=== PATIENT | male | born 1950 | race African-American/Black ===

== ENCOUNTER 2019-02-28 17:48 | Emergency (ER) | payer OTHER ==
[~2019-02-28] VITALS: Ht 193 cm; Wt 111.1 kg
[2019-02-28] MEDS ORDERED: MORPHINE SULFATE 4 MG/ML SYR/VIAL IV ONE (22:00)
[2019-02-28] MEDS ORDERED: ONDANSETRON HCL 4 MG/2 ML VIAL IV ONE (22:00)
[2019-03-01] VITALS: BP 122/69
[2019-03-01] MEDS ORDERED: HYDROcodone-ACET 7.5/325MG TAB PO ONE (00:15)
== END 2019-03-01 01:11 | disposition home or self-care (01) ==
LOC: ER 17:53
DX: S46.911A Strain of unspecified muscle, fascia and tendon at shoulder and upper arm level, right arm, initial encounter (principal); S93.401A Sprain of unspecified ligament of right ankle, initial encounter; M19.011 Primary osteoarthritis, right shoulder; E78.5 Hyperlipidemia, unspecified; I10 Essential (primary) hypertension; X50.9XXA Other and unspecified overexertion or strenuous movements or postures, initial encounter; Y93.89 Activity, other specified; Y99.8 Other external cause status; Y92.89 Other specified places as the place of occurrence of the external cause
CPT/HCPCS: 73030; 73200; 96374; 96375; 99284; J2270; J2405

== ENCOUNTER 2022-09-27 07:34 | Emergency (ER) | payer OTHER ==
[~2022-09-27] VITALS: Ht 160 cm; Wt 108.3 kg
[2022-09-27 08:19] LABS: Basophils # (auto) 0.1 10 ^3/uL (0-0.2); Basophils % (auto) 1.2 % (0.0-2.0); Eosinophils # (auto) 0.1 10 ^3/uL (0-0.8); Eosinophils % (auto) 2.4 % (0.0-7.0); Hematocrit 40.4 % (41.0-53.0); Hemoglobin 14.1 g/dL (13.5-17.5); Lymphocytes # (auto) 1.9 10 ^3/uL (0.4-5.4); Lymphocytes % (auto) 34.4 % (10.0-50.0); Mean Corpuscular Hemoglobin 34.3 pg (28.0-32.0); Mean Corpuscular Hgb Conc. 34.9 g/dL (32.0-36.0); Mean Corpuscular Volume 98.1 fL (80.0-100.0); Monocytes # (auto) 0.5 10 ^3/uL (0-1.3); Monocytes % (auto) 8.2 % (0.0-12.0); Neutrophils % (auto) 53.8 % (37.0-80.0); Nucleated Red Blood Cells % 0.1 %; Red Blood Cells 4.11 10^6/uL (4.5-5.90); Red Cell Distribution Width 14.4 % (11.8-14.3); White Blood Cell 5.5 10^3/uL (4.4-10.8)
[2022-09-27 08:33] LABS: Albumin 3.6 g/dL (3.4-5.0); Calcium 8.8 mg/dL (8.5-10.1); Potassium 3.2 mmol/L (3.5-5.1)
[2022-09-27 08:36] LABS: BUN/Creatinine Ratio 8.1; Bilirubin, Total 0.3 mg/dL (0.2-1.0); Total Protein 6.9 g/dL (6.4-8.2)
[2022-09-27] MEDS ORDERED: POTASSIUM EFFERVESENT TAB 25 MEQ PO ONE (09:30)
[2022-09-27 12:26] VITALS: BP 135/80
== END 2022-09-27 12:30 | disposition home or self-care (01) ==
LOC: ER 07:34
DX: E87.6 Hypokalemia (principal); I10 Essential (primary) hypertension; E78.5 Hyperlipidemia, unspecified; Z90.89 Acquired absence of other organs
CPT/HCPCS: 36415; 70450; 80053; 84484; 85025; 85379; 93005

== ENCOUNTER 2023-05-06 19:19 | Emergency (ER) | payer OTHER ==
[~2023-05-06] VITALS: Ht 190.5 cm; Wt 104.5 kg
[2023-05-06 19:27] VITALS: BP 125/65; PULSE 86; RESP 16; O2SAT 98
== END 2023-05-06 23:58 | disposition left against medical advice (07) ==
LOC: ER 19:19
DX: R51.9 Headache, unspecified (principal); E78.5 Hyperlipidemia, unspecified; I10 Essential (primary) hypertension; Z53.21 Procedure and treatment not carried out due to patient leaving prior to being seen by health care provider; W18.09XA Striking against other object with subsequent fall, initial encounter; Y93.89 Activity, other specified; Y92.89 Other specified places as the place of occurrence of the external cause; Y99.8 Other external cause status
CPT/HCPCS: 70450

== ENCOUNTER 2025-07-11 22:25 | Emergency (ER) | payer OTHER ==
[~2025-07-11] VITALS: Ht 190.5 cm; Wt 104.5 kg
--- NOTE | 2025-07-11 23:12 | DVH ---
EXAM: CT HEAD WITHOUT CONTRAST INDICATION: fall, head injury TECHNIQUE: CT of the head without intravenous contrast. Radiation Dose : 1. Head: CT Dose: CTDI volume is 67.9 mGy. Dose-length product is 1337.9 mGy*cm The dose indicators for CT are the volume Computed Tomography (CT) Dose Index (CTDIvol) and the Dose Length Product (DLP), and are measured in units of mGy and mGy-cm, respectively. These indicators are not patient dose, but values generated from the CT scanner acquisition factors. The report includes radiation exposure data for exposures received during this examination. COMPARISON: CT HEAD WITHOUT CONTRAST on DOS: 05/06/23, CT HEAD WITHOUT CONTRAST on DOS: 09/27/22 FINDINGS: Motion artifact degrades fine detail. No acute territorial infarct, intracranial hemorrhage, or mass effect. There are global involutional changes with compensatory prominence of the ventricles and sulci. Patchy periventricular and subcortical white matter hypoattenuation is nonspecific but may be related to small vessel ischemic disease. Right lens implant. The paranasal sinuses and mastoid air cells are clear. The osseous structures are unremarkable. IMPRESSION: 1. No acute territorial infarct, intracranial hemorrhage, or mass effect. 2. Age-related involutional changes. Chronic microvascular changes. Radiation optimization: All CT scans at this facility use at least one of these dose optimization techniques: automated exposure control mA and/or kV adjustment per patient size (includes targeted exams where dose is matched to clinical indication) or iterative reconstruction.
--- NOTE | 2025-07-11 23:21 | DVH ---
CLINICAL HISTORY: fall, head injury TECHNIQUE: CT exam of the cervical spine was performed without intravenous contrast. This exam was performed according to our departmental dose optimization program. Up-to-date CT equipment and radiation dose reduction techniques are utilized as appropriate. CTDI 23.63 mGy DLP 643.99 mGy.cm COMPARISON: None FINDINGS: No acute displaced fracture. There are degenerative changes of the cervical spine characterized by endplate osteophytosis and intervertebral disc space narrowing. Prior laminectomy at C5 through C7. Nonspecific heterogeneous appearance of the osseous structures. There is reversal of the cervical dania dosis. There are prominent multilevel disc osteophyte complexes. Degenerative uncovertebral and facet hypertrophy contribute to multilevel neural foraminal narrowing. The paraspinal soft tissues are unremarkable. There is heterogeneous enlarged thyroid goiter containing calcification. IMPRESSION: 1. No acute displaced fracture. 2. Degenerative and postsurgical changes of the cervical spine as detailed. 3. Heterogeneous appearance of the osseous structures. Comparison with prior imaging is suggested in the assessing acuity and interval change. 4. Heterogeneous thyroid goiter may be further assessed with a nonemergent thyroid ultrasound as clinically indicated.
--- NOTE | 2025-07-11 23:32 | ED.PDOC ---
[place]. trauma (HPI) HPI Comments HPI: Poor Historian. 75-year-old male presents to emergency department for evaluation of a fall from a standing position. Patient states he was using his walker trying to get into his truck in his right leg gave out and he fell backward and hit the right side of the back of his head. Denies any numbness or tingling or loss of consciousness. Denies any other complaints. Past Medical History: On Xarelto, hyperlipidemia, hypertension, insomnia, DVT Past Surgical History: Surgical spine surgery REVIEW OF SYSTEMS: CONSTITUTIONAL: Denies acute: fever, diaphoresis, chills, generalized weakness. HEAD: Denies acute: photophobia Eyes: Denies acute: Double vision, vision loss, eye pain, eye discharge. EARS: Denies acute: tinnitus, hearing loss, ear discharge, ear pain, THROAT: Denies acute: sore throat, swelling, difficulty swallowing , pain with swallowing, change in voice. NECK: Denies acute: neck pain, neck swelling, stiff neck. HEART: Denies acute : chest pain, palpitations, LUNGS: Denies acute: SOB, wheezing, cough, hemoptysis ABDOMEN: Denies acute: abdominal pain, Nausea, Vomiting, diarrhea, melena , hematemesis, hematochezia SKIN: Denies acute: rash, redness, lesions, itchiness. EXTREMITIES: Denies acute: calf pain, numbness, tingling, weakness, denies pain in extremity. Denies acute: Low back pain. Neuro: Denies acute: focal neurological deficit, motor or sensory focal neurological deficit, tremors, seizure like activity, confusion, dizziness, change in mental status, loss of bowel or bladder function, cauda equina like symptoms. : Denies acute: dysuria, hematuria, flank pain, increase in urinary frequency. PSYCH: Denies acute: hallucination, suicidal ideation, homicidal ideation. PHYSICAL EXAM: General: ----no----acute distress, awake and alert. Head: normocephalic, atraumatic. No raccoon's eyes, no murphy sign. Neck: supple, trachea is midline, no swelling. Cervical spine: Palpation of the posterior midline of the cervical spine reveals no focal swelling, erythema, focal tenderness to palpation. Patient has normal range of motion. Throat: Normal phonation. Eyes:, no erythema, no purulent discharge, no proptosis, no icterus. Heart: regular rate, regular rhythm, no significant murmur appreciated. Lungs: no apparent respiratory distress, Able to speak in full sentences. No wheezing, no rhonchi, no crackles. No stridors Clear to auscultation bilaterally. Abdomen: non tender to palpation, non distended, soft, no guarding, no rebound, + bowel sounds. Neuro: Awake, Alert, oriented to name, self, situation, follows commands GCS=15. Speech is normal. Skin: no petechia, no purpura, no cyanosis, non-pale, not jaundice. Lower extremities: --no - Pitting edema no deformity, no focal swelling, no calf TTP. Makes eye contact. moves all four extremities. Patient ambulates with a walker only. History of unsteady gait and leg weakness. Face: no apparent facial droop. No nuchal rigidity, Kernig's sign, Brudzinski's sign, no meningeal signs. ED COURSE: DISCLAIMER: This medical document was created using an electronic medical record system with voice recognition software and computerized dictation system. Although this document has been carefully reviewed, there might still be some phonetic and typographical errors. Occasional wrong-word or "sound-alike" substitutions may have occurred due to the inherent limitations of voice recognition software. These areas are purely typographical due to imperfections of the software programs and do not reflect any compromise in the patient's medical care. Please read the chart carefully and recognize, using context, where these substitutions have occurred. Chief Complaint: Head Injury Time Seen by MD: 22:37 Reviewed notes: Allergies Allergies: Coded Allergies: NO KNOWN ALLERGIES (Unverified , 02/13/18) Information Source: Patient Mode of Arrival: Ambulatory Past Medical History PAST MEDICAL HISTORY: High Lipids, HTN Surgical History: Thyroidectomy Family History Family History: Unknown Social History Smoker: Non-Smoker Alcohol: Denies ETOH Use Drugs: Denies Drug Use Lives In: Home X-Ray, Labs, Meds, VS Vital Signs Date Time Temp Pulse Resp B/P (MAP) Pulse Ox O2 Delivery O2 Flow Rate FiO2 07/11/25 22:30 98.4 66 18 111/69 96 98.4 X-Ray, Labs, Meds, VS Comment [facility] [id number] [place] [id number] Ph: [phone] DIAGNOSTIC IMAGING Diagnostic Imaging Report : [id number] Signed PATIENT: LATOYA FULLER ACCT: [id number] UNIT: [id number] : 1950 LOC: ER ROOM / BED: / AGE / SEX: 75 / M ADM STATUS: REG ER SERVICE 36 ORDERING PHYSICIAN: CARL WHITING DO PROCEDURE(s): HWOCT - HEAD WITHOUT CONTRAST REASON: fall, head injury ORDER NUMBER(s): [id number], ACCESSION NUMBER(s): [id number] EXAM: CT HEAD WITHOUT CONTRAST INDICATION: fall, head injury TECHNIQUE: CT of the head without intravenous contrast. Radiation Dose : 1. Head: CT Dose: CTDI volume is 67.9 mGy. Dose-length product is 1337.9 mGy*cm The dose indicators for CT are the volume Computed Tomography (CT) Dose Index (CTDIvol) and the Dose Length Product (DLP), and are measured in units of mGy and mGy-cm, respectively. These indicators are not patient dose, but values generated from the CT scanner acquisition factors. The report includes radiation exposure data for exposures received during this examination. COMPARISON: CT HEAD WITHOUT CONTRAST on DOS: 05/06/23, CT HEAD WITHOUT CONTRAST on DOS: 09/27/22 FINDINGS: Motion artifact degrades fine detail. No acute territorial infarct, intracranial hemorrhage, or mass effect. There are global involutional changes with compensatory prominence of the ventricles and sulci. Patchy periventricular and subcortical white matter hypoattenuation is nonspecific but may be related to small vessel ischemic disease. Right lens implant. The paranasal sinuses and mastoid air cells are clear. The osseous structures are unremarkable. IMPRESSION: 1. No acute territorial infarct, intracranial hemorrhage, or mass effect. 2. Age-related involutional changes. Chronic microvascular changes. Radiation optimization: All CT scans at this facility use at least one of these dose optimization techniques: automated exposure control mA and/or kV adjustment per patient size (includes targeted exams where dose is matched to clinical indication) or iterative reconstruction. ATED BY: YANET DEL ANGEL MD DICTATED DATE/TIME: 07/11/252309 SIGNED BY: YANET DEL ANGEL MD SIGNED DATE/TIME: 07/11/252309 CC: [place] [id number] Ph: [phone] DIAGNOSTIC IMAGING Diagnostic Imaging Report : [id number] Signed PATIENT: LATOYA FULLER ACCT: [id number] UNIT: [id number] : 1950 LOC: ER ROOM / BED: / AGE / SEX: 75 / M ADM STATUS: REG ER SERVICE 36 ORDERING PHYSICIAN: CARL WHITING DO PROCEDURE(s): CS2 - CERVICAL WITHOUT CONTRAST REASON: fall, head injury ORDER NUMBER(s): [id number], ACCESSION NUMBER(s): [id number] CLINICAL HISTORY: fall, head injury TECHNIQUE: CT exam of the cervical spine was performed without intravenous contrast. This exam was performed according to our departmental dose optimization program. Up-to-date CT equipment and radiation dose reduction techniques are utilized as appropriate. CTDI 23.63 mGy DLP 643.99 mGy.cm COMPARISON: None FINDINGS: No acute displaced fracture. There are degenerative changes of the cervical spine characterized by endplate osteophytosis and intervertebral disc space narrowing. Prior laminectomy at C5 through C7. Nonspecific heterogeneous appearance of the osseous structures. There is reversal of the cervical lordosis. There are prominent multilevel disc osteophyte complexes. Degenerative uncovertebral and facet hypertrophy contribute to multilevel neural foraminal narrowing. The paraspinal soft tissues are unremarkable. There is het erogeneous enlarged thyroid goiter containing calcification. IMPRESSION: 1. No acute displaced fracture. 2. Degenerative and postsurgical changes of the cervical spine as detailed. 3. Heterogeneous appearance of the osseous structures. Comparison with prior imaging is suggested in the assessing acuity and interval change. 4. Heterogeneous thyroid goiter may be further assessed with a nonemergent thyroid ultrasound as clinically indicated. ATED BY: YANET DEL ANGEL MD DICTATED DATE/TIME: 07/11/252317 SIGNED BY: YANET DEL ANGEL MD SIGNED DATE/TIME: 07/11/252317 CC: Time of 1ST Reevaluation: 23:31 Reevaluation 1ST: Unchanged Patient Education/Counseling: Diagnosis, Treatment Family Education/Counseling: No Family Present Departure 1 Departure Time of Disposition: 23:30 Impression: Primary Impression: Closed head injury Additional Impressions: Fall Thyroid goiter Disposition: 01 HOME / SELF CARE / HOMELESS Condition: Stable Additional Instructions: Additional instructions: Please read all instructions provided in this packet carefully. You MUST follow-up with your primary care/family doctor in 1 to 2 days. If you are unable to see your primary care/family doctor, please return to our emergency room for re-assessment and re-evaluation in 1 to 2 days. Return to the emergency room here in our facility or to the nearest ER [facility] if your symptoms change or worsen. CONSULTATIONS: you MUST Follow-up for consultation as soon as possible with: -neurology in 1-2 days. Please call for appointment. You MUST call the consultants office yourself to make an appointment. You may need to arrange that through your insurance and/or your primary/family doctor. If you are unable to see the makeup sales consultant in 1 to 2 days, you must return to our emergency room (or any other ER of your choice) for re-assessment and re- evaluation. Adequate fluid hydration. Although you have been discharged from the Emergency Department, this does not mean that you have a "clean bill of health". No definitive diagnosis for your symptoms has been made today. It is possible that you are in the process of developing a serious illness. This is why you must return to the ED without fail if any new or worsening symptoms develop. Fall precautions. Below is a copy of your radiological report for follow up: [address] [address] Ph: [phone] DIAGNOSTIC IMAGING Diagnostic Imaging Report : [id number] Signed PATIENT: LATOYA FULLER ACCT: [id number] UNIT: [id number] : 1950 LOC: ER ROOM / BED: / AGE / SEX: 75 / M ADM STATUS: REG ER SERVICE 36 ORDERING PHYSICIAN: CARL WHITING DO PROCEDURE(s): HWOCT - HEAD WITHOUT CONTRAST REASON: fall, head injury ORDER NUMBER(s): [id number], ACCESSION NUMBER(s): [id number] EXAM: CT HEAD WITHOUT CONTRAST INDICATION: fall, head injury TECHNIQUE: CT of the head without intravenous contrast. Radiation Dose : 1. Head: CT Dose: CTDI volume is 67.9 mGy. Dose-length product is 1337.9 mGy*cm The dose indicators for CT are the volume Computed Tomography (CT) Dose Index (CTDIvol) and the Dose Length Product (DLP), and are measured in units of mGy and mGy-cm, respectively. These indicators are not patient dose, but values generated from the CT scanner acquisition factors. The report includes radiation exposure data for exposures received during this examination. COMPARISON: CT HEAD WITHOUT CONTRAST on DOS: 05/06/23, CT HEAD WITHOUT CONTRAST on DOS: 09/27/22 FINDINGS: Motion artifact degrades fine detail. No acute territorial infarct, intracranial hemorrhage, or mass effect. There are global involutional changes with compensatory prominence of the ventricles and sulci. Patchy periventricular and subcortical white matter hypoattenuation is nonspecific but may be related to small vessel ischemic disease. Right lens implant. The paranasal sinuses and mastoid air cells are clear. The osseous structures are unremarkable. IMPRESSION: 1. No acute territorial infarct, intracranial hemorrhage, or mass effect. 2. Age-related involutional changes. Chronic microvascular changes. Radiation optimization: All CT scans at this facility use at least one of these dose optimization techniques: automated exposure control mA and/or kV adjustment per patient size (includes targeted exams where dose is matched to clinical indication) or iterative reconstruction. ATED BY: YANET DEL ANGEL MD DICTATED DATE/TIME: 07/11/252309 SIGNED BY: YANET DEL ANGEL MD SIGNED DATE/TIME: 07/11/252309 CC: [place] [id number] Ph: [phone] DIAGNOSTIC IMAGING Diagnostic Imaging Report : [id number] Signed PATIENT: LATOYA FULLER ACCT: [id number] UNIT: [id number] : 1950 LOC: ER ROOM / BED: / AGE / SEX: 75 / M ADM STATUS: REG ER SERVICE 36 ORDERING PHYSICIAN: CARL WHITING DO PROCEDURE(s): CS2 - CERVICAL WITHOUT CONTRAST REASON: fall, head injury ORDER NUMBER(s): [id number], ACCESSION NUMBER(s): [id number] CLINICAL HISTORY: fall, head injury TECHNIQUE: CT exam of the cervical spine was performed without intravenous contrast. This exam was performed according to our departmental dose optimization program. Up-to-date CT equipment and radiation dose reduction techniques are utilized as appropriate. CTDI 23.63 mGy DLP 643.99 mGy.cm COMPARISON: None FINDINGS: No acute displaced fracture. There are degenerative changes of the cervical spine characterized by endplate osteophytosis and intervertebral disc space narrowing. Prior laminectomy at C5 through C7. Nonspecific heterogeneous appearance of the osseous structures. There is reversal of the cervical lordosis. There are prominent multilevel disc osteophyte complexes. Degenerative uncovertebral and facet hypertrophy contribute to multilevel neural foraminal narrowing. The paraspinal soft tissues are unremarkable. There is heterogeneous enlarged thyroid goiter containing calcification. IMPRESSION: 1. No acute displaced fracture. 2. Degenerative and postsurgical changes of the cervical spine as detailed. 3. Heterogeneous appearance of the osseous structures. Comparison with prior imaging is suggested in the assessing acuity and interval change. 4. Heterogeneous thyroid goiter may be further assessed with a nonemergent thyroid ultrasound as clinically indicated. ATED BY: YANET DEL ANGEL MD DICTATED DATE/TIME: 07/11/252317 SIGNED BY: YANET DEL ANGEL MD SIGNED DATE/TIME: 07/11/252317 CC: Discharged With: Self CARL WHITING DO Jul 11, 2025 23:32
[2025-07-12] VITALS: BP 123/63; PULSE 62; RESP 16; TEMP 98; O2SAT 99
== END 2025-07-12 00:04 | disposition home or self-care (01) ==
LOC: ER 22:25
DX: S09.8XXA Other specified injuries of head, initial encounter (principal); E04.9 Nontoxic goiter, unspecified; I10 Essential (primary) hypertension; E78.5 Hyperlipidemia, unspecified; Z90.89 Acquired absence of other organs; W18.30XA Fall on same level, unspecified, initial encounter; Y93.01 Activity, walking, marching and hiking; Y92.89 Other specified places as the place of occurrence of the external cause; Y99.8 Other external cause status
CPT/HCPCS: 70450; 72125